=== PATIENT | female | born 1970 | race Caucasian/White ===

== ENCOUNTER 2017-06-21 20:39 | Observation (INO) ==
[2017-06-21 22:20] LABS: Bilirubin,Urine Negative (Negative); Blood,Urine Negative (Negative); Clarity,Urine Cloudy (Clear); Color,Urine Yellow (Yellow); Glucose,Urine (UA) Normal (Normal); Ketones,Urine Negative (Negative); Leukocyte Esterase,Urine Small (Negative); Nitrite,Urine Positive (Negative); Protein,Urine Negative (Neg-Trace); Specific Gravity,Urine 1.015 (1.010-1.025); Urobilinogen,Urine Normal (Normal)
[2017-06-21 22:21] LABS: Bacteria,Urine Many per hpf (None-Few); Hyaline Casts,Urine None Seen per lpf (None-Few); RBC,Urine 0-3 per hpf (0-3); Squamous Epithelial Cell,Urine Many per lpf (None-Few); WBC,Urine 30-50 per hpf (0-3)
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
[2017-06-21 22:45] LABS: Basophils % 0.3 %; Eosinophils # 0.2 K/mcL (0.0-0.6); Hematocrit 37.7 % (35.3-44.9); Hemoglobin 11.5 g/dL (11.5-15.4); Immature Granulocytes % 0.3 % (0-4); Lymphocytes # 1.2 K/mcL (0.6-4.6); Lymphocytes % 13.6 %; Mean Corpuscular HGB Conc 30.5 g/dL (31.6-35.5); Mean Corpuscular Hemoglobin 22.4 pg (28.0-33.3); Mean Corpuscular Volume 73.5 fL (83.0-100.0); Mean Platelet Volume 10.4 fL (9.4-12.4); Monocytes # 0.4 K/mcL (0.0-1.3); Monocytes % 4.4 %; Neutrophils # 6.9 K/mcL (1.6-8.9); Platelet Count 234 K/mcL (140-400); Red Blood Count 5.13 M/mcL (3.82-4.97); Red Cell Distribution Width 17.7 % (11.5-14.5); Segmented Neutrophils % 79.4 %
[2017-06-21 23:03] LABS: BUN/Creatinine Ratio 16 (6-26); Blood Urea Nitrogen 9 mg/dL (6-20); Calcium 9.4 mg/dL (8.6-10.3); Carbon Dioxide 27 mEq/L (23-29); Chloride 105 mEq/L (98-107); Glucose 110 mg/dL (70-105); Osmolality,Calculated 283 (280-300); Potassium 3.9 mEq/L (3.5-5.1); Sodium 137 mEq/L (136-145); eGFR For African Americans > 60 (> 60); eGFR For Non-African Americans > 60 (> 60)
[2017-06-21] MEDS ORDERED: Sulfamethoxazole/Trimeth DS 1 EACH TABLET PO ONE (23:47)
[2017-06-22] MEDS ORDERED: Levofloxacin 750 MG/150 ML 750 MG/150 ML BAG IVPB ONE (00:01)
[2017-06-22] MEDS ORDERED: *HR* Morphine Immed Rel 30 MG TABLET PO ONE (00:06)
[2017-06-22] MEDS ORDERED: Acetaminophen 325 MG TABLET PO PRN (00:43)
[2017-06-22] MEDS ORDERED: Naloxone 0.4 MG/ML INJ IVP PRN (00:43)
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
[2017-06-22] MEDS: Gentamicin Oint 15 GM TUBE TP SCH ×2 (00:49→11:36)
[2017-06-22] MEDS: *HR* Heparin 5,000 UNIT/ML VIAL SQ SCH ×3 (05:35→21:29)
[2017-06-22 06:39] LABS: Basophils % 0.5 %; Eosinophils # 0.2 K/mcL (0.0-0.6); Eosinophils % 3.1 %; Hematocrit 34.6 % (35.3-44.9); Hemoglobin 10.6 g/dL (11.5-15.4); Immature Granulocytes % 0.3 % (0-4); Lymphocytes # 1.7 K/mcL (0.6-4.6); Lymphocytes % 21.9 %; Mean Corpuscular HGB Conc 30.6 g/dL (31.6-35.5); Mean Corpuscular Hemoglobin 22.5 pg (28.0-33.3); Mean Corpuscular Volume 73.3 fL (83.0-100.0); Mean Platelet Volume 10.6 fL (9.4-12.4); Monocytes # 0.5 K/mcL (0.0-1.3); Monocytes % 6.5 %; Neutrophils # 5.1 K/mcL (1.6-8.9); Platelet Count 234 K/mcL (140-400); Red Blood Count 4.72 M/mcL (3.82-4.97); Red Cell Distribution Width 17.8 % (11.5-14.5); Segmented Neutrophils % 67.7 %
[2017-06-22 06:54] LABS: BUN/Creatinine Ratio 15 (6-26); Blood Urea Nitrogen 8 mg/dL (6-20); Calcium 9.2 mg/dL (8.6-10.3); Carbon Dioxide 26 mEq/L (23-29); Chloride 107 mEq/L (98-107); Glucose 95 mg/dL (70-105); Magnesium 1.9 mg/dL (1.6-2.6); Osmolality,Calculated 286 (280-300); Potassium 3.7 mEq/L (3.5-5.1); Sodium 139 mEq/L (136-145); eGFR For African Americans > 60 (> 60); eGFR For Non-African Americans > 60 (> 60)
[2017-06-22 07:06] LABS: Thyroid Stimulating Hormone 7.162 mcIU/mL (0.340-5.600)
[2017-06-22 09:01] LABS: Estimated Average Glucose 137 mg/dl; Hemoglobin A1C 6.4 %
[2017-06-22] MEDS ORDERED: Ibuprofen 600 MG TABLET PO PRN (09:45)
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
[2017-06-22] MEDS: Cetaphil Lotion 473 ML BOTTLE TP SCH (11:50)
--- NOTE | 2017-06-22 12:56 | Podiatry Consult Note ---
Date of Encounter: 06/22/17 Time of Encounter: 11:45 Assessment and Plan (1) Onychogryphosis Current visit: Yes Status: Acute Thick, elongated mycotic toe nails of both feet consistent with onychogryphosis. Plan: Recommend patient follow up in Podiatry clinic one week after discharge from hospital for foot care. Due to thickness and length of toe nails patient will need to follow up for a toe nail debridement. (2) Cellulitis Current visit: Yes Status: Acute BLE edema with severely dried skin and hyperkeratosis. Light erythema to the left anterior tibial region with dried excoriations. No streaking, no warmth, no fluctuance. Currently on Levaquin. Qualifiers: Site of cellulitis: extremity Site of cellulitis of extremity: lower extremity Laterality: unspecified laterality Qualified Code(s): L03.119 - Cellulitis of unspecified part of limb (3) Xerosis cutis Current visit: Yes Status: Acute Xerosis cutis of BLE and feet. Plan: Recommend Lac Hydrin cream, apply externally to BLE and feet twice daily. Follow up in Podiatry clinic with Michael Oviedo CNP 1 to 2 weeks after discharge from hospital. History of Present Illness HPI: Ms. Cassidy is a 46 year old female admitted to [facility] for right shoulder pain, UTI , and cellulitis. Patient has a medical history significant for anxiety and depression. Podiatry was consulted for thick elongated toe nails and wound of the lower extremity. Patient states she is unable to trim her toe nails due to thickness. States she was seen once in Podiatry clinic for a toe nail debridement but has not been back due to the pain of having them trimmed. Patient states her legs and feet are very dry. Patient states she has cellulitis in her legs. No c/o fever or chills. Patient states she has had increased swelling in her legs and feet. Patient denies a history of Diabetes. Patient states she lives at home with her boyfriend. Patient denies any surgical history to her feet. No history of DVTs. No c/o cp, sob, fever, or chills. Past Med Surg Social Fam HX - Past Medical History Medical history: non-contributory Psychiatric history: anxiety, depression - Past Surgical History Surgical History: - Social History Smoking Status: Current every day smoker Packs per day: 3 Smokeless Tobacco Status: No Alcohol use: none Drug use: none - Family History Mother Hx Family Respiratory Disorders: Yes (Emphysema) Hx Family Psychosocial Disorders: Yes (schizophrenia, bipolar) Father History Unknown: Yes Hx Family Respiratory Disorders: Yes (Emphysema) Medications and Allergies No Known Home Drugs 06/22/17 [History] 3 Allergy/AdvReac Type Severity Reaction Status Date / Time acetaminophen [From Tylenol] Allergy See Verified 06/21/17 20:56 Comments codeine Allergy See Verified 06/21/17 20:56 Comments Penicillins Allergy See Verified 06/21/17 20:56 Comments aspirin AdvReac Nausea Verified 06/22/17 09:12 Physical Exam - Constitutional Vitals: Temp Pulse Resp BP Pulse Ox 97.4 F L 83 16 123/70 96 06/22/17 10:25 06/22/17 10:25 06/22/17 10:25 06/22/17 10:25 06/22/17 10:25 Exam: Dermatologic: NAIL PATHOLOGY: Nails #1 through #5 bilaterally are thick, elongated, discolored , mycotic with brian horns nails consistent with onychogryphosis . No signs of bacterial infection.. ULCER: No signs of ulceration or open wound of either foot.. Podiatry General Exam: General appearance: alert awake oriented X 3. Calm and pleasant, no acute distress.. Vascular: Pedal pulses +1/4 DP unable to palpate PT secondary to edema. No evidence of cyanosis, pallor or rubor, Edema graded at 2+/4, Skin temperature warm, Homans Sign negative, capillary refill time is immediate to digits.. Neurologic: Sensation intact with light touch Musculoskeletal: Muscle strength 5/5 and equal bilaterally.. Integument: Skin with decreased turgor, decreased subcutaneous tissue, skin thin and shiny with trophic changes associated with comorbidities as described in history. BLE and feet with dry skin and hyperkeratosis consistent with xerosis cutis. Dried excoriations to the left anterior tibial region. No open lesions or ulcerations to BLE or feet. Light erythema to the left anterior tibial region, no warmth, no tenderness, no fluctuance, no evidence of bacterial infection. Results - Labs Result Diagrams: 06/22/17 06:15 06/22/17 06:15 Labs: Abnormal lab results Hgb 10.6 g/dL (11.5-15.4) L 06/22/17 06:15 Hct 34.6 % (35.3-44.9) L 06/22/17 06:15 MCV 73.3 fL (83.0-100.0) L 06/22/17 06:15 MCH 22.5 pg (28.0-33.3) L 06/22/17 06:15 MCHC 30.6 g/dL (31.6-35.5) L 06/22/17 06:15 RDW 17.8 % (11.5-14.5) H 06/22/17 06:15 Creatinine 0.55 mg/dL (0.60-1.20) L 06/22/17 06:15 Hemoglobin A1c 6.4 % (-5.6) H 06/22/17 06:15 TSH 7.162 mcIU/mL (0.340-5.600) H 06/22/17 06:15 Urine Clarity Cloudy (Clear) A 06/21/17 22:09 Urine Nitrite Positive (Negative) A 06/21/17 22:09 Ur Leukocyte Esterase Small (Negative) H 06/21/17 22:09 Urine Microscopic WBC 30-50 per hpf (0-3) H 06/21/17 22:09 Ur Squamous Epith Cells Many per lpf (None-Few) H 06/21/17 22:09 Urine Bacteria Many per hpf (None-Few) H 06/21/17 22:09 Ur Culture Indicated? NO. (NO) A 06/21/17 22:09 H & H 06/22/17 Range/Units 06:15 Hgb 10.6 L (11.5-15.4) g/dL Hct 34.6 L (35.3-44.9) % All other labs normal. Consult Discharge Plan - Plan Referrals: Preston Townsend MD [Primary Care Provider] - 06/28/17 1:15 pm (Hospital follow up appointment Wednesday 06/28 at 1:15 PM. )
[2017-06-22 13:17] LABS: Triiodothyronine (T3) Free 3.82 pg/mL (2.50-3.90)
[2017-06-22] MEDS ORDERED: levoFLOXacin 750 MG TABLET PO SCH (21:00)
[2017-06-22] MEDS ORDERED: Levofloxacin 750 MG/150 ML 750 MG/150 ML BAG IVPB SCH (23:00)
[2017-06-23 05:26] LABS: Basophils % 0.3 %; Eosinophils # 0.2 K/mcL (0.0-0.6); Eosinophils % 3.4 %; Hematocrit 32.7 % (35.3-44.9); Hemoglobin 9.9 g/dL (11.5-15.4); Immature Granulocytes % 0.3 % (0-4); Lymphocytes # 1.4 K/mcL (0.6-4.6); Lymphocytes % 19.9 %; Mean Corpuscular HGB Conc 30.3 g/dL (31.6-35.5); Mean Corpuscular Hemoglobin 22.2 pg (28.0-33.3); Mean Corpuscular Volume 73.3 fL (83.0-100.0); Mean Platelet Volume 10.4 fL (9.4-12.4); Monocytes # 0.5 K/mcL (0.0-1.3); Monocytes % 6.9 %; Neutrophils # 4.9 K/mcL (1.6-8.9); Platelet Count 204 K/mcL (140-400); Red Blood Count 4.46 M/mcL (3.82-4.97); Red Cell Distribution Width 17.7 % (11.5-14.5); Segmented Neutrophils % 69.2 %
[2017-06-23] MEDS: *HR* Heparin 5,000 UNIT/ML VIAL SQ SCH (06:36)
[2017-06-23] MEDS: Gentamicin Oint 15 GM TUBE TP SCH (10:55)
[2017-06-23] MEDS: Cetaphil Lotion 473 ML BOTTLE TP SCH (10:55)
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
[2017-06-23 11:09] VITALS: BP 129/84
--- NOTE | 2017-06-23 11:09 | Physician Discharge Referral ---
Home Health/Hosp Referral Info Transfer to: Home Health Provider in Charge Post Discharge: PCP - Diagnosis (1) Unsatisfactory living conditions Priority: Primary Status: Acute (2) UTI (urinary tract infection) Priority: Secondary Status: Acute (3) Cellulitis Priority: Secondary Status: Acute (4) Hyperglycemia Priority: Secondary Status: Resolved (5) Morbid obesity Priority: Secondary Status: Chronic (6) Acquired lymphedema of lower extremity Priority: Secondary Status: Acute (7) Physical deconditioning Priority: Secondary Status: Chronic (8) Elevated TSH Priority: Secondary Status: Acute (9) DVT prophylaxis Priority: Secondary Status: Acute - Respiratory Orders Smoking Cessation: Smoking cessation has been advised. For more information, call the [place] Tobacco Quit Line at 1-269-YVTANOW. - Services Needed Following services are medically necessary services: Nursing, Home Health Aide, Physical Therapy, Occupational Therapy, Med Social Work - Transfer Medications Prescriptions: Ibuprofen [Motrin] 600 mg PO Q6HR PRN #20 tablet PRN Reason: Pain levoFLOXacin [Levaquin] 750 mg PO Q24H #1 tablet Home Medications: Cetaphil Lotion [Cetaphil] 1 appl TP DAILY bottle 06/23/17 [Rx] Ibuprofen [Motrin] 600 mg PO Q6HR PRN #20 tablet 06/23/17 [Rx] levoFLOXacin [Levaquin] 750 mg PO Q24H #1 tablet 06/23/17 [Rx] Allergies/Adverse Reactions: 3 Allergy/AdvReac Type Severity Reaction Status Date / Time acetaminophen [From Tylenol] Allergy See Verified 06/21/17 20:56 Comments codeine Allergy See Verified 06/21/17 20:56 Comments Penicillins Allergy See Verified 06/21/17 20:56 Comments aspirin AdvReac Nausea Verified 06/22/17 09:12 Certification: Further, I certify that my clinical findings support that this patient is homebound (i.e. absences from home require considerable and taxing effort and are for medical reasons or holiness services or infrequently or short duration when for other reasons) because: Homebound Reason: Patient requires assistance of a person or device to safely leave home, Leaving home requires considerable and taxing effort due to condition Attestation: My signature below is to certify that this patient is under my care and that I, or nurse practitioner, or a physician's executive assistant to general counsel working with me, has a face-to -face encounter with this patient.
== END 2017-06-23 16:17 | disposition home health service (06) ==
LOC: 3ANU 20:39 → EMEROO 20:39 → SUATTDRO 06-22 01:22 → 3ANU 06-22 02:05
PROVIDERS: ADMIT Internal Medicine; ATTEND Internal Medicine